=== PATIENT | female | born 1940 | race Caucasian/White ===

== ENCOUNTER 2019-11-19 20:08 | Emergency (ER) | payer OTHER ==
[~2019-11-19] VITALS: Ht 157.5 cm; Wt 78.0 kg
[2019-11-19] MEDS ORDERED: COZAAR50 MG (20:21)
[2019-11-19] MEDS ORDERED: ADULT ASPIRIN81 MG (20:22)
== END 2019-11-20 16:04 | disposition home or self-care (01) ==
LOC: ER 20:08
DX: I87.2 Venous insufficiency (chronic) (peripheral) (principal); M79.661 Pain in right lower leg

== ENCOUNTER 2020-02-07 00:16 | Emergency (ER) | payer OTHER ==
[~2020-02-07] VITALS: Ht 157.5 cm; Wt 72.6 kg
[~2020-02-07 00:16] MED LIST: ADULT ASPIRIN81 MG; COZAAR50 MG
[2020-02-07] MEDS ORDERED: [UNRECOGNIZED DRUG - OTHER] (00:35)
[2020-02-07] MEDS ORDERED: ALLEGRA ALLERG180 MG PO (03:20)
== END 2020-02-07 06:45 | disposition home or self-care (01) ==
LOC: ER 00:16 → EDBD 00:18 → ER 06:45
DX: T78.1XXA Other adverse food reactions, not elsewhere classified, initial encounter (principal); R21 Rash and other nonspecific skin eruption; R60.0 Localized edema; X58.XXXA Exposure to other specified factors, initial encounter